=== PATIENT | female | born 1980 | race Caucasian/White ===

== ENCOUNTER 2017-01-07 09:49 | Emergency (ER) | payer MEDICAID, OTHER ==
--- NOTE | 2017-01-07 11:28 | UC ---
FLU HPI - HPI Summary HPI Summary: URI sx for just a little over 24 hours daughter had flu A last week, pt did get flu vaccine in July-general body aches, nasal congestion, denies n/v/d/ denies, urinary sx, denies cough fever---but did have some chills - History of Current Complaint Chief Complaint: UCGeneralIllness Stated Complaint: ACHEY/STUFFY NOSE Time Seen by Provider: 01/07/17 11:18 Hx Obtained From: Patient Hx Last Menstrual Period: 08/29/16 ?: Yes Onset/Duration: Sudden Onset, Lasting Hours - 29 hours Severity Currently: Mild Severity Initially: Mild Pain Intensity: 7 - offered tylenol Pain Scale Used: 0-10 Numeric Associated Signs & Symptoms: Positive: Myalgia, Nasal Congestion Related Hx: Possible Flu/Infectious Exposure - Risk Factors Influenza Risk Factors: or up to 2 Week (Including loss of ) - Allergy/Home Medications Allergies/Adverse Reactions: Allergies Allergy/AdvReac Type Severity Reaction Status Date / Time Azithromycin [From Zithromax] Allergy Intermediate Hives Verified 01/07/17 10:52 Home Medications: Home Medications Acetaminophen TAB* [Tylenol TAB*] 650 mg PO Q4H PRN 01/07/17 [History Confirmed 01/07/17] Folic Acid TAB* [Folvite TAB*] 1 mg PO DAILY 01/07/17 [History Confirmed ] Vitamin TAB* 1 tab PO DAILY 01/07/17 [History Confirmed 01/07/17] Triamcinolone NASAL SPRAY* [Nasacort Aq Nasal [place]*] 1 spray BOTH NARES DAILY 01/07/17 [History Confirmed 01/07/17] PMH/Surg Hx/FS Hx/Imm Hx Previously Healthy: No Endocrine History Of: Denies: Diabetes Cardiovascular History Of: Reports: Cardiac Disorders - "very small heart murmur " Denies: Hypertension, Pacemaker/ICD Respiratory History Of: Reports: Asthma GI/ History Of: Denies: Renal Disease - Surgical History Surgical History: Yes Surgery Procedure, Year, and Place: LAMINECTOMY 2003-SPINAL FUSION 2005 WITH PINS/SCREWS. 2010 - Family History Known Family History: Positive: None - Social History Occupation: Employed Full-time - employed from home Lives: With Family Alcohol Use: None Substance Use Type: None Smoking Status (MU): Never Smoked Tobacco - Immunization History Most Recent Influenza Vaccination: July 2016 Most Recent Pneumonia Vaccination: July 2016 Review of Systems Constitutional: Chills Skin: Negative Eyes: Negative ENT: Sore Throat - yesterday resolved today Respiratory: Negative Cardiovascular: Negative Gastrointestinal: Negative Genitourinary: Negative Motor: Negative Neurovascular: Negative Musculoskeletal: Negative Neurological: Negative Psychological: Negative All Other Systems Reviewed And Are Negative: Yes Physical Exam Triage Information Reviewed: Yes Appearance: Well-Nourished, Ill-Appearing - mild, Pain Distress - mild Vital Signs: Initial Vital Signs Temp 99.2 F 01/07/17 10:48 Pulse 108 01/07/17 10:48 Resp 16 01/07/17 10:48 BP 107/59 01/07/17 10:48 Pulse Ox 99 01/07/17 10:48 Vital Signs Reviewed: Yes Eye Exam: Normal Eyes: Positive: Conjunctiva Clear ENT Exam: Normal ENT: Positive: Normal ENT inspection, Hearing grossly normal, Pharynx normal, TMs normal. Negative: Nasal congestion, Nasal drainage, Tonsillar swelling, Tonsillar exudate, Trismus, Muffled/hoarse voice Dental Exam: Normal Neck exam: Normal Neck: Positive: Supple, Nontender, No Lymphadenopathy Respiratory Exam: Normal Respiratory: Positive: Chest non-tender, Lungs clear, Normal breath sounds, No respiratory distress, No accessory muscle use Cardiovascular Exam: Normal Cardiovascular: Positive: RRR, No Murmur, Pulses Normal, Brisk Capillary Refill Abdominal Exam: Normal Abdomen Description: Positive: Nontender, Soft Bowel Sounds: Positive: Present Musculoskeletal Exam: Normal Musculoskeletal: Positive: Strength Intact, ROM Intact, No Edema Neurological Exam: Normal Neurological: Positive: Alert, Muscle Tone Normal Psychological Exam: Normal Psychological: Positive: Normal Response To Family Skin Exam: Normal Diagnostics - Laboratory Diagnostic Studies Completed/Ordered: influenza A/B (-), FHT 150's Flu Course/Dx - Course Course Of Treatment: tylenol, rest increase fluids, follow with ob in 2 days - Differential Dx/Diagnosis Differential Diagnosis/HQI/PQRI: Influenza, RSV, Upper Respiratory Infection Provider Diagnoses: URI Discharge - Discharge Plan Condition: Stable Disposition: HOME Patient Education Materials: Upper Respiratory Infection (ED), Viral Syndrome ( ED) Referrals: Betty Cabrera MD [Primary Care Provider] - 2 Days
[2017-01-07] MEDS ORDERED: Acetaminophen TAB* 325 MG PO ONE (11:35)
[2017-01-07 11:43] VITALS: BP 101/60
== END 2017-01-07 11:44 | disposition home or self-care (01) ==
LOC: UCCORT 09:49
DX: J06.9 Acute upper respiratory infection, unspecified (principal); Z88.1 Allergy status to other antibiotic agents
CPT/HCPCS: 87502; 99212; A9270-GY; G0463

== ENCOUNTER 2017-09-05 09:46 | Emergency (ER) | payer OTHER ==
[2017-09-05 10:09] VITALS: BP 114/72
--- NOTE | 2017-09-05 10:16 | UC ---
Throat Pain/Nasal Nito HPI - HPI Summary HPI Summary: Pt with 6 days progressive sx - started with sinus pressure, pnd. No with cough , green sputum. mild SOB. Occasional wheeze. No fever, + chills. No rash. No allan, visin changes. Pt has used OTC robitussin, dayquil with little relief. Pt does have asthma. Has an MDI. Pt breast feeding, 3 month old Pt's medications reviewed this visit - History of Current Complaint Chief Complaint: UCRespiratory Stated Complaint: COUGH,CHEST CONGESTION Time Seen by Provider: 09/05/17 10:01 Hx Obtained From: Patient Hx Last Menstrual Period: 08/29/16 ?: No - breast feeding Onset/Duration: Gradual Onset Severity: Moderate Cough: Sputum Appears - green Associated Signs & Symptoms: Positive: Wheezing, Sinus Discomfort, Nasal Discharge - Allergies/Home Medications Allergies/Adverse Reactions: Allergies Allergy/AdvReac Type Severity Reaction Status Date / Time Azithromycin [From Zithromax] Allergy Intermediate Hives Verified 09/05/17 10:05 Home Medications: Home Medications Albuterol HFA INHALER* [Ventolin HFA Inhaler*] 1 - 2 puff INH Q4H PRN 09/05/17 [ History Confirmed 09/05/17] Docusate CAP* [Colace Cap*] 200 mg PO QAM 09/05/17 [History Confirmed 09/05/17] PMH/Surg Hx/FS Hx/Imm Hx Previously Healthy: Yes Respiratory History: Asthma - Surgical History Surgical History: Yes Surgery Procedure, Year, and Place: , 05/23/17, [place]; LAMINECTOMY 2003-SPINAL FUSION 2005 WITH PINS/SCREWS. 2010 - Family History Known Family History: Positive: Respiratory Disease - Social History Lives: With Family Alcohol Use: None Substance Use Type: None Smoking Status (MU): Never Smoked Tobacco - Immunization History Most Recent Influenza Vaccination: Not the 2017/2018 Season Most Recent Pneumonia Vaccination: July 2016 Review of Systems Constitutional: Chills, Fatigue ENT: Sinus Congestion, Sinus Pain/Tenderness Respiratory: Cough Neurological: Negative All Other Systems Reviewed And Are Negative: Yes Physical Exam Triage Information Reviewed: Yes Appearance: Well-Appearing, No Pain Distress, Well-Nourished Vital Signs: Initial Vital Signs Temp 98.6 F 09/05/17 10:01 Pulse 94 09/05/17 10:01 Resp 16 09/05/17 10:01 BP 114/72 09/05/17 10:01 Pulse Ox 99 09/05/17 10:01 Vital Signs Reviewed: Yes Eye Exam: Normal Eyes: Positive: Conjunctiva Clear ENT: Positive: TMs normal, Other: - turbinates inflammed and boggy + PND no exudate, erythema. Negative: Pharyngeal erythema Dental Exam: Normal Neck exam: Normal Neck: Positive: 1 Respiratory: Positive: Chest non-tender, No respiratory distress, No accessory muscle use, Wheezing - scattered wheeze Cardiovascular Exam: Normal Cardiovascular: Positive: RRR, No Murmur Abdominal Exam: Normal Abdomen Description: Positive: Nontender, No Organomegaly Bowel Sounds: Positive: Present Musculoskeletal Exam: Normal Neurological Exam: Normal Psychological Exam: Normal Skin Exam: Normal Throat Pain/Nasal Course/Dx - Course Assessment/Plan: Pt with progressive cough, green sputum. Pt with asthmam breast feeding. VSS. Albuerol MDI Q4. hydrate. Amox. flonase. secretion precaution - Differential Dx/Diagnosis Provider Diagnoses: bronchitis Discharge - Discharge Plan Condition: Stable Disposition: HOME Prescriptions: Amoxicillin PO (*) [Amoxicillin 500 MG CAP*] 500 mg PO Q12H #14 cap Patient Education Materials: Acute Bronchitis (ED) Referrals: Betty Cabrera MD [Primary Care Provider] - Additional Instructions: - Stay well hydrated. Drink plenty of non-alcoholic, non-caffinated beverages - Take antibiotics as prescribed until gone - they may cause diarrhea. - USe inhaler - 2 puffs every 4 hours today and tomorrow and then as needed - continue with nasocort as previous - Okay to use Robitussin for cough - After you have been on antibiotics for 2 days - change your toothbrush and your pillowcase. These infections are spread by secrtions - do NOT share eating or drinking utensils - clean items you share with other people such as iphone, computer mouse, TV remote, etc - Okay to take Tylenol every 6 hours for pain or fever. - Contact your doctor or return with questions or concerns
== END 2017-09-05 10:53 | disposition home or self-care (01) ==
LOC: UCCORT 09:46
DX: J40 Bronchitis, not specified as acute or chronic (principal)
CPT/HCPCS: 99212; G0463

== ENCOUNTER 2018-11-01 09:15 | Emergency (ER) | payer OTHER ==
--- NOTE | 2018-11-01 09:42 | UC ---
Throat Pain/Nasal Nito HPI - HPI Summary HPI Summary: 38-year-old woman comes in with chief complaint of runny nose yellow rhinorrhea sore throat cough chest congestion. Symptoms been going on for almost a week it 's gotten a lot worse over the last couple of days. She is breast-feeding her daughter is sick and on antibiotics right now. No measured fevers today. Because she's breast-feeding she has not really tried any [id number] medications. Albuterol does help when she gets some chest congestion. - History of Current Complaint Stated Complaint: COUGH, CONGESTION Time Seen by Provider: 11/01/18 09:35 Hx Last Menstrual Period: 08/29/16 - Allergies/Home Medications Allergies/Adverse Reactions: Allergies Allergy/AdvReac Type Severity Reaction Status Date / Time azithromycin Allergy Hives Verified 11/01/18 09:37 morphine Allergy Nausea And Verified 11/01/18 09:37 Vomiting senna [From Senokot] Allergy Diarrhea Verified 11/01/18 09:37 Home Medications: Home Medications L.acidoph,Paracasei, B.lactis [Probiotic] 1 each PO DAILY 11/01/18 [History Confirmed 11/01/18] PMH/Surg Hx/FS Hx/Imm Hx Previously Healthy: Yes Respiratory History: Asthma - Surgical History Surgical History: Yes Surgery Procedure, Year, and Place: , 05/23/17, [place]; LAMINECTOMY 2003-SPINAL FUSION 2005 WITH PINS/SCREWS. 2010 - Family History Known Family History: Positive: None, Respiratory Disease - Social History Alcohol Use: None Substance Use Type: None Smoking Status (MU): Never Smoked Tobacco - Immunization History Most Recent Influenza Vaccination: Not the 2016/2017 Season Most Recent Pneumonia Vaccination: July 2016 Review of Systems All Other Systems Reviewed And Are Negative: Yes Constitutional: Positive: Chills Skin: Positive: Negative Eyes: Positive: Negative ENT: Positive: Sore Throat, Nasal Discharge, Sinus Congestion Respiratory: Positive: Cough, Other - WHEEZING Cardiovascular: Positive: Negative Gastrointestinal: Positive: Negative Motor: Positive: Negative Neurovascular: Positive: Negative Musculoskeletal: Positive: Negative Neurological: Positive: Negative Psychological: Positive: Negative Is Patient Immunocompromised?: No Physical Exam Triage Information Reviewed: Yes Appearance: No Pain Distress, Well-Nourished, Ill-Appearing - MILD Vital Signs Reviewed: Yes Eye Exam: Normal Eyes: Positive: Conjunctiva Clear ENT: Positive: Pharyngeal erythema, Nasal congestion, Nasal drainage, TMs normal Neck exam: Normal Neck: Positive: Supple Respiratory Exam: Normal Respiratory: Positive: Lungs clear, Normal breath sounds, No respiratory distress Cardiovascular: Positive: RRR Musculoskeletal Exam: Normal Musculoskeletal: Positive: Strength Intact, ROM Intact Neurological Exam: Normal Neurological: Positive: Alert, Muscle Tone Normal Psychological Exam: Normal Psychological: Positive: Age Appropriate Behavior Skin Exam: Normal Throat Pain/Nasal Course/Dx - Course Course Of Treatment: DISCUSSED VIRAL VERSES BACTERIAL INFECTION AND THE ROLE OF ANTIBIOTICS. THE PATIENT WISHES TO BE ON ANTIBIOTIC AT THIS TIME. - Differential Dx/Diagnosis Provider Diagnosis: Upper respiratory tract infection Discharge - Sign-Out/Discharge Documenting (check all that apply): Patient Departure All imaging exams completed and their final reports reviewed: No Studies - Discharge Plan Condition: Stable Disposition: HOME Prescriptions: Amoxicillin PO (*) [Amoxicillin 875 MG (*)] 875 mg PO BID #20 tab Patient Education Materials: Upper Respiratory Infection (ED) Referrals: Betty Cabrera MD [Primary Care Provider] - Additional Instructions: FOLLOW UP WITH YOUR DOCTOR IF NOT COMPLETELY IMPROVED. GET RECHECKED FOR ANY WORSENING OF YOUR CONDITION OR QUESTIONS OR CONCERNS. - Billing Disposition and Condition Condition: STABLE Disposition: Home
[2018-11-01 09:43] VITALS: BP 128/73
== END 2018-11-01 09:49 | disposition home or self-care (01) ==
LOC: UCCORT 09:15
DX: J06.9 Acute upper respiratory infection, unspecified (principal); Z88.5 Allergy status to narcotic agent; Z88.1 Allergy status to other antibiotic agents; Z88.8 Allergy status to other drugs, medicaments and biological substances
CPT/HCPCS: 99212; G0463

== ENCOUNTER 2018-11-26 09:36 | Emergency (ER) | payer OTHER ==
[2018-11-26 09:58] VITALS: BP 124/74
--- NOTE | 2018-11-26 10:13 | UC ---
Throat Pain/Nasal Nito HPI - HPI Summary HPI Summary: sinus congestion and headache for 2 weeks, now has a cough that is harsh and productive - History of Current Complaint Chief Complaint: UCRespiratory Stated Complaint: COUGH Time Seen by Provider: 11/26/18 10:05 Hx Obtained From: Patient Hx Last Menstrual Period: uterine ablation ?: No Onset/Duration: Sudden Onset, Lasting Weeks Severity: Moderate Pain Intensity: 0 Cough: Productive Associated Signs & Symptoms: Positive: Dysphagia, Wheezing, Sinus Discomfort, Nasal Discharge - Allergies/Home Medications Allergies/Adverse Reactions: Allergies Allergy/AdvReac Type Severity Reaction Status Date / Time azithromycin Allergy Hives Verified 11/26/18 09:54 morphine Allergy Nausea And Verified 11/26/18 09:54 Vomiting senna [From Senokot] Allergy Diarrhea Verified 11/26/18 09:54 Home Medications: Home Medications Ibuprofen TAB* [Advil TAB*] 400 mg PO Q6H PRN 11/26/18 [History Confirmed ] Triamcinolone NASAL SPRAY* [Nasacort AQ Nasal [place]*] 1 puff NASAL DAILY [History Confirmed 11/26/18] PMH/Surg Hx/FS Hx/Imm Hx Previously Healthy: Yes - Surgical History Surgical History: Yes Surgery Procedure, Year, and Place: , 05/23/17, [place]; LAMINECTOMY 2003-SPINAL FUSION 2005 WITH PINS/SCREWS. 2010. D&C. uterine ablation - Family History Known Family History: Positive: None, Respiratory Disease - Social History Alcohol Use: None Substance Use Type: None Smoking Status (MU): Never Smoked Tobacco - Immunization History Most Recent Influenza Vaccination: Not the 2016/2017 Season Most Recent Pneumonia Vaccination: July 2016 Review of Systems All Other Systems Reviewed And Are Negative: Yes Constitutional: Positive: Fatigue Skin: Positive: Negative Eyes: Positive: Negative ENT: Positive: Sore Throat, Ear Ache, Nasal Discharge, Sinus Pain/Tenderness Respiratory: Positive: Cough Cardiovascular: Positive: Negative Gastrointestinal: Positive: Negative Genitourinary: Positive: Negative Motor: Positive: Negative Neurovascular: Positive: Negative Musculoskeletal: Positive: Negative Neurological: Positive: Headache Psychological: Positive: Negative Is Patient Immunocompromised?: No Physical Exam Triage Information Reviewed: Yes Appearance: Well-Nourished, Ill-Appearing, Pain Distress Vital Signs: Initial Vital Signs Temp 97.9 F 11/26/18 09:55 Pulse 84 11/26/18 09:55 Resp 16 11/26/18 09:55 BP 124/74 11/26/18 09:55 Pulse Ox 98 11/26/18 09:55 Vital Signs Reviewed: Yes Eye Exam: Normal ENT: Positive: Pharyngeal erythema, Nasal congestion, TM bulging - bilaterally Dental Exam: Normal Neck exam: Normal Neck: Positive: Supple, Nontender, No Lymphadenopathy Respiratory Exam: Normal Respiratory: Positive: Chest non-tender, Lungs clear, Normal breath sounds Cardiovascular Exam: Normal Cardiovascular: Positive: RRR, No Murmur, Pulses Normal Abdominal Exam: Normal Abdomen Description: Positive: Nontender, No Organomegaly, Soft Musculoskeletal Exam: Normal Neurological Exam: Normal Psychological Exam: Normal Skin Exam: Normal Throat Pain/Nasal Course/Dx - Course Course Of Treatment: hx obtained, exam performed ,meds reviewed, treaed for sinusitis and bronchospasm - Differential Dx/Diagnosis Differential Diagnosis/HQI/PQRI: Influenza, Laryngitis, Otitis Media, Pharyngitis, Sinusitis, URI Provider Diagnosis: Sinusitis, Bronchospasm Discharge - Sign-Out/Discharge Documenting (check all that apply): Patient Departure All imaging exams completed and their final reports reviewed: No Studies - Discharge Plan Condition: Stable Disposition: HOME Prescriptions: Cephalexin CAP* [Keflex CAP*] 500 mg PO BID #14 cap predniSONE [Prednisone 20 MG TAB] 40 mg PO DAILY #10 tablet Patient Education Materials: Bronchospasm (ED), Rhinosinusitis (ED) Referrals: Betty Cabrera MD [Primary Care Provider] - Additional Instructions: 1. take the medication as prescribed. 2. Increase fluid intake and get plenty of rest 3. TYlenol as needed for headache/ pain. - Billing Disposition and Condition Condition: STABLE Disposition: Home
== END 2018-11-26 10:18 | disposition home or self-care (01) ==
LOC: UCCORT 09:36
DX: J32.9 Chronic sinusitis, unspecified (principal); J98.01 Acute bronchospasm; Z88.1 Allergy status to other antibiotic agents; Z88.5 Allergy status to narcotic agent; Z88.8 Allergy status to other drugs, medicaments and biological substances
CPT/HCPCS: 99212; G0463

== ENCOUNTER 2019-02-22 09:07 | Emergency (ER) | payer OTHER ==
[2019-02-22 09:37] VITALS: BP 107/74
--- NOTE | 2019-02-22 10:10 | UC ---
Throat Pain/Nasal Nito HPI - HPI Summary HPI Summary: Pt with 10 days head congestion, progressive sinus pressure, now in lungs x 3 days. + productive yellow sputum. no fevers, + chills. + fatigue. Pt has taken OTC decongestant and her MDI with short time improvement. Pt does have h/o ashthma. never intubated Medications reviewed this visit - History of Current Complaint Chief Complaint: UCGeneralIllness Stated Complaint: COUGH,CHILLS Time Seen by Provider: 02/22/19 09:48 Hx Obtained From: Patient Hx Last Menstrual Period: uterine ablation Pain Intensity: 0 - Allergies/Home Medications Allergies/Adverse Reactions: Allergies Allergy/AdvReac Type Severity Reaction Status Date / Time azithromycin Allergy Hives Verified 02/22/19 09:35 morphine Allergy Nausea And Verified 02/22/19 09:35 Vomiting senna [From Senokot] Allergy Diarrhea Verified 02/22/19 09:35 PMH/Surg Hx/FS Hx/Imm Hx Previously Healthy: Yes - Surgical History Surgical History: Yes Surgery Procedure, Year, and Place: , 05/23/17, [place]; LAMINECTOMY 2003-SPINAL FUSION 2005 WITH PINS/SCREWS. 2010. D&C. uterine ablation - Family History Known Family History: Positive: None, Respiratory Disease, Non-Contributory - Social History Occupation: Employed Full-time Lives: With Family Alcohol Use: None Substance Use Type: None Smoking Status (MU): Never Smoked Tobacco - Immunization History Most Recent Influenza Vaccination: Not the 2017/2017 Season Most Recent Pneumonia Vaccination: July 2016 Review of Systems All Other Systems Reviewed And Are Negative: Yes Constitutional: Positive: Fatigue ENT: Positive: Nasal Discharge, Sinus Congestion, Sinus Pain/Tenderness Respiratory: Positive: Cough, Other - wheeze Physical Exam - Summary Physical Exam Summary: Vital Signs Reviewed: Yes A+Ox3, cough Eyes: Conjunctiva Clear, FABIO. EOM intact and full ENT: Hearing grossly normal TM x 2 clear, turbinates inflammed, boggy, +PND, mmoist, uvula midline, no exudate, no erythema Neck: Positive: Supple Respiratory: Positive: No respiratory distress, No accessory muscle use + course cough, wheeze no retractions Cardiovascular: RRR nl s1, s2 no m/r CBT <2 sec abd soft + BS nt/nd no guarding, no distension Musculoskeletal Exam: ARAMBULA x 4 without difficulty Strength Intact, ROM Intact Neurological: Positive: Alert, + sensation throughout Psychological: Positive: Normal Response To Family Skin: Positive: no rash, no ecchymosis Triage Information Reviewed: Yes Vital Signs: Initial Vital Signs Temp 97.8 F 02/22/19 09:33 Pulse 88 02/22/19 09:33 Resp 17 02/22/19 09:33 BP 107/74 02/22/19 09:33 Pulse Ox 100 02/22/19 09:33 Throat Pain/Nasal Course/Dx - Course Course Of Treatment: Pt with progressive congestion, cough, wheeze x 3 days. Pt with h/o wheeze. VSS pt with scatterd wheeze, cough and congested head Will Rx albtuerol, pred, abx hydrate secretion precaution humidified air - Differential Dx/Diagnosis Provider Diagnosis: Asthma, Acute bronchitis Discharge - Sign-Out/Discharge Documenting (check all that apply): Patient Departure All imaging exams completed and their final reports reviewed: No Studies - Discharge Plan Condition: Stable Disposition: HOME Prescriptions: Albuterol HFA INHALER* [Ventolin HFA Inhaler*] 2 puff INH Q4H PRN #1 mdi PRN Reason: wheeze Amoxicillin PO (*) [Amoxicillin 500 MG CAP*] 500 mg PO Q12H #20 cap Inhaler, Assist Devices [Aerochamber Mv] 1 each PO Q4HR #1 spacer predniSONE TAB* [Deltasone TAB*] 50 mg PO DAILY #5 tab Patient Education Materials: Acute Bronchitis (ED) Referrals: Betty Cabrera MD [Primary Care Provider] - Additional Instructions: - Stay well hydrated. Drink plenty of non-alcoholic, non-caffinated beverages. - Alternate ibuprofen (Advil, Motrin) 600mg and Tylenol every 3 hours for pain or fever. Take with food. Do NOT take for more than 4-5 days. - These infections are spread by secretions - do NOT share eating or drinking utensils - clean items you share with other people such as cell phones, computer mouse, TV remote, computer tablets,etc. Once you have been on antibiotics for 2 days, change your toothbrush and your pillowcase. - get plenty of restful sleep - humidify the air in the room where you sleep - boil water, run a hot steam shower, vaporizer, cups of water by heat register - okay to take over the counter decongestant and cough medication - Take antibiotics and prednisone as prescribed - Use your inhaler - 2 puffs every 4 hours today and tomorrow, then every 4 hours as needed - contact your doctor or return with questions or concerns - Billing Disposition and Condition Condition: STABLE Disposition: Home
== END 2019-02-22 10:42 | disposition home or self-care (01) ==
LOC: UCCORT 09:07
DX: J20.9 Acute bronchitis, unspecified (principal); J45.909 Unspecified asthma, uncomplicated; Z88.1 Allergy status to other antibiotic agents; Z88.5 Allergy status to narcotic agent; Z88.8 Allergy status to other drugs, medicaments and biological substances
CPT/HCPCS: 99212; G0463

== ENCOUNTER 2019-08-17 09:05 | Emergency (ER) | payer OTHER ==
[2019-08-17 09:44] VITALS: BP 121/81
--- NOTE | 2019-08-17 10:09 | UC ---
Throat Pain/Nasal Nito HPI - HPI Summary HPI Summary: 39-year-old female who had postnasal drainage starting 4 days ago which has progressively turned into a productive cough of green sputum. She denies any sinus symptoms. She does have a history of asthma as well as seasonal allergies. She has not been using her nebulizer at home. - History of Current Complaint Chief Complaint: UCRespiratory Stated Complaint: COUGH Time Seen by Provider: 08/17/19 10:00 Hx Obtained From: Patient Hx Last Menstrual Period: 06/2019 ?: No Onset/Duration: Gradual Onset Severity: Mild Pain Intensity: 5 Cough: Sputum Appears Associated Signs & Symptoms: Positive: Nasal Discharge Related History: Seasonal Allergies - Allergies/Home Medications Allergies/Adverse Reactions: Allergies Allergy/AdvReac Type Severity Reaction Status Date / Time azithromycin Allergy Hives Verified 08/17/19 09:29 morphine Allergy Nausea And Verified 08/17/19 09:29 Vomiting senna [From Senokot] Allergy Diarrhea Verified 08/17/19 09:29 Home Medications: Home Medications Decongestant Tab 1 tab PO DAILY PRN 08/17/19 [History Confirmed 08/17/19] Dextromethorphn/Acetaminoph/Cp [Vicks Nyquil Cold & Flu N] 1 liq PO ONCE [History Confirmed 08/17/19] GuaiFENesin DM* [Robitussin DM*] 10 ml PO Q4H PRN 08/17/19 [History Confirmed ] Multivitamin [Multivitamins] 1 each PO DAILY 08/17/19 [History Confirmed ] PMH/Surg Hx/FS Hx/Imm Hx Previously Healthy: Yes Cardiovascular History: Other - History of a slight heart murmur. Respiratory History: Asthma - Surgical History Surgical History: Yes Surgery Procedure, Year, and Place: , 05/23/17, [place]; LAMINECTOMY 2003-SPINAL FUSION 2005 WITH PINS/SCREWS. 2010. D&C. uterine ablation 07/2018 - Family History Known Family History: Positive: None, Respiratory Disease, Non-Contributory - Social History Alcohol Use: None Substance Use Type: None Smoking Status (MU): Never Smoked Tobacco - Immunization History Most Recent Influenza Vaccination: Not the Season Most Recent Pneumonia Vaccination: July 2016 Review of Systems All Other Systems Reviewed And Are Negative: Yes ENT: Positive: Nasal Discharge Respiratory: Positive: Shortness Of Breath - Occasional shortness of breath with coughing, Cough - Productive cough of green sputum Is Patient Immunocompromised?: No Physical Exam Triage Information Reviewed: Yes Appearance: Well-Appearing, No Pain Distress, Well-Nourished Vital Signs: Initial Vital Signs Temp 98.2 F 08/17/19 09:37 Pulse 82 08/17/19 09:37 Resp 17 08/17/19 09:37 BP 121/81 08/17/19 09:37 Pulse Ox 100 08/17/19 09:37 Vital Signs Reviewed: Yes Eyes: Positive: Conjunctiva Clear ENT: Positive: Pharynx normal, TMs normal, Uvula midline Neck: Positive: Supple, Nontender, No Lymphadenopathy Respiratory: Positive: Lungs clear, Normal breath sounds, No respiratory distress, No accessory muscle use Cardiovascular: Positive: RRR, No Murmur, Pulses Normal, Brisk Capillary Refill Abdomen Description: Positive: Nontender, No Organomegaly, Soft. Negative: CVA Tenderness (R), CVA Tenderness (L) Bowel Sounds: Positive: Present Musculoskeletal Exam: Normal Neurological Exam: Normal Psychological Exam: Normal Skin Exam: Normal Throat Pain/Nasal Course/Dx - Course Course Of Treatment: Chest x-ray:FINDINGS: CARDIOMEDIASTINAL SILHOUETTE: The cardiomediastinal silhouette is normal. MCKINLEY: The mckinley are normal. PLEURA: The costophrenic angles are sharp. No pleural abnormalities are noted. LUNG PARENCHYMA: There is hyperinflation with flattening of the diaphragm and expansion of the AP diameter of the chest. ABDOMEN: The upper abdomen is clear. There is no subphrenic gas. BONES AND SOFT TISSUES: No bone or soft tissue abnormalities are noted. OTHER: None. IMPRESSION: HYPERINFLATION WHICH CAN BE SEEN WITH COPD OR REACTIVE AIRWAY DISEASE. NO ACTIVE CARDIOPULMONARY DISEASE. DuoNeb treatment: Patient refuses stating she would feel too shaky driving home. With the chest x-ray findings of reactive airway disease I am going to start her on tapering prednisone which she has had in the past. She can use her albuterol inhaler with spacer at home to puffs every 4-6 hours as needed. She is to follow-up with her primary care provider if no improvement in 3 or 4 days. At this point time I feel this is more viral upper respiratory illness and does not need an antibiotic. - Differential Dx/Diagnosis Provider Diagnosis: Bronchitis Discharge ED - Sign-Out/Discharge Documenting (check all that apply): Patient Departure All imaging exams completed and their final reports reviewed: Yes - Discharge Plan Condition: Good Disposition: HOME Prescriptions: predniSONE TAB* [Deltasone 10 MG TAB*] 10 mg PO DAILY 12 Days #30 tab Patient Education Materials: Acute Bronchitis (ED) Referrals: Jhoana Teran PA [Primary Care Provider] - Additional Instructions: Increase fluids, use your inhaler with spacer 2 puffs every 4-6 hours as needed for wheezing or tight cough. Follow-up with your primary care provider in 3 or 4 days if no improvement. Take the prednisone with food. - Billing Disposition and Condition Condition: GOOD Disposition: Home
== END 2019-08-17 11:10 | disposition home or self-care (01) ==
LOC: UCCORT 09:05
DX: J40 Bronchitis, not specified as acute or chronic (principal); J45.909 Unspecified asthma, uncomplicated
CPT/HCPCS: 71046; 99212; G0463

== ENCOUNTER 2019-09-24 07:28 | Emergency (ER) | payer OTHER ==
--- OUTSIDE RECORDS SUMMARY | 2019-09-24 07:40 | XMS REPORT | Continuity of Care Document ---
:1980 External Reference #:[id number] Author Name Jhoana Teran PA Address [id number] [place] [address] Care Team Providers Name Role Phone Yue Simmons MD - Neurology Care Team Information Hydraulic Press Operator Sheree Short MD - Care Team Information Hydraulic Press Operator Dermatology Nakia Avery [facility] Care Team Information Hydraulic Press Operator [phone] Jhoana Teran PA - Medical Care Team Information Hydraulic Press Operator [phone] Problems Active Problems Provider Date Acne Suzie Maya [facility] Onset: 09/28/2017 Headache Jhoana Teran PA Onset: 08/06/2019 Acute upper respiratory infection, Betty Cabrera MD Onset: 04/07/2018 unspecified Acute pharyngitis Alicia Workman M.D. Onset: 12/19/2017 Diarrhea Alicia Workman M.D. Onset: 10/28/2017 Allergic rhinitis Alicia Workman M.D. Onset: 10/28/2017 Acute sinusitis Alicia Workman M.D. Onset: 10/28/2017 Social History Type Date Description Comments Sex Unknown Tobacco Use Start: Unknown Never Smoked Cigarettes Smoking Status Reviewed: 08/06/19 Never Smoked Cigarettes ETOH Use Denies alcohol use Tobacco Use Start: Unknown Patient has never smoked Allergies, Adverse Reactions, Alerts Active Allergies Reaction Severity Comments Date Sennosides, Snf cannot tolerate 08/09/2017 Morphine Nausea and Vomiting 08/09/2017 Azithromycin hives 08/09/2017 Medications Active Medications SIG Qnty Indications Ordering Date Provider Magnesium 1 by mouth every 90tabs R51 Sandy Walker, 08/06/2019 400mg day for the MD Tablets prevention of headache Vitamin B-2 1 by mouth every 90tabs R51 Sandy Walker, 08/06/2019 100mg day for prevention MD Tablets of headache Naproxen 1 tab by mouth 60tabs M65.4 Sandy Walker, 08/06/2019 250mg twice a day with MD Tablets food Ventolin HFA 1-2 puffs every 4-6 8gm Rick, Betty, 04/07/2018 hours as needed for MD 108(90Base) mcg/Act cough and shortness Aerosol of breath Nasacort Allergy 2 sprays each nare Unknown 24HR every day 55mcg/Act Aerosol Zyrtec Allergy 1 tab by mouth Unknown 10mg every night Tablets Clindamycin apply face daily Unknown Phosphate 1% Solution Probiotic 1 by mouth every Unknown Capsules day Womens Multi Unknown Capsules Immunizations CPT Code Status Date Vaccine Reaction Lot # [id number] Given 08/06/2019 Influenza Virus Vaccine, Quadrivalent, 36 [id number] Mos+, .5ML [id number] Given 09/11/2018 Influenza Virus Vaccine, Quadrivalent, 36 none [id number] Mos+, .5ML 86377 Given 10/10/2017 Influenza Virus Vaccine Quadrivalent Iiv4 [id number] [address] Given 05/05/2017 Tdap injection [id number] 13482 Given 08/30/2016 Pneumovax Injection [id number] 13328 Given 08/30/2016 Influenza Virus Vaccine Split Virus Use [id number] For Individual 3Yr Older [id number] Given 01/07/2016 Influenza Vaccine (Fluzone) Age 3 And [id number] Older Vital Signs Date Vital Result Comment 08/06/2019 9:41am BP Systolic 116 mmHg BP Diastolic 68 mmHg Body Temperature 98.3 F Heart Rate 86 /min Respiratory Rate 18 /min Height 60 inches 5'0" Weight 141.38 lb BMI (Body Mass Index) 27.6 kg/m2 BSA (Body Surface Area) 1.61 m2 [place] body weight in kilograms 45 kg O2 % BldC Oximetry 99 % 04/07/2018 11:14am BP Systolic Sitting Right Arm 106 mmHg BP Diastolic Sitting Right Arm 79 mmHg Body Temperature 98.2 F Heart Rate 91 /min Respiratory Rate 12 /min Height 60 inches 5'0" Weight 123.00 lb BMI (Body Mass Index) 24.0 kg/m2 BSA (Body Surface Area) 1.52 m2 [place] body weight in kilograms 45 kg O2 % BldC Oximetry 98 % Results Test Date Facility Test Result H/L Range Note Specific gravity of Import Specific gravity <=1.005 Low 1.010-1.03 Urine by Automated 2019 of Urine by 0 test strip Automated test strip Urine hemoglobin Import Urine hemoglobin Negative 0-2 detection by 2019 detection by automated test automated test strip strip Urine pH Import Urine pH 6.5 6.5-7.5 measurement by 2018 measurement by automated test automated test strip strip Urine protein CCD Import Urine protein Negative Negative measurement by 2019 measurement by automated test automated test strip strip (mass/volume) Urine urobilinogen Import Urine urobilinogen 0.2 0.2-1.0 measurement 2019 measurement (units/volume) by t (units/volume) by test strip Urine nitrite Import Urine nitrite Negative Negative detection by 2019 detection by automated test automated test strip strip Urine leukocyte CCD Import Urine leukocyte Negative Negative esterase detection 2019 esterase detection by automated te by automated test strip Urine human Import Urine human Negative Negative chorionic 2019 chorionic gonadotropin (hCG) gonadotropin (hCG) detection detection Serum or plasma CCD Import Serum or plasma 115 High 74-106 glucose measurement 2018 glucose (mass/volume) measurement (mass/volume) Serum or plasma /CCD Import Serum or plasma 11 7-18 urea nitrogen 2019 urea nitrogen measurement measurement (mass/vo (mass/volume) Serum or plasma CCD Import Serum or plasma 0.8 0.6-1.3 creatinine 2018 creatinine measurement measurement (mass/volum (mass/volume) Estimated /CCD Import Estimated >60 >60 glomerular 2019 glomerular filtration rate filtration rate (GFR) non-Afr (GFR) non- GFR/Bsa pred.black 07/19/ N2N/CCD Import GFR/Bsa pred.black >60 >60 SerPl MDRD-ArVRat 2019 SerPl MDRD-ArVRat Serum or plasma 07/19/ N2N/CCD Import Serum or plasma 13.7 urea 2019 urea nitrogen/creatinine nitrogen/creatinin mass rati e mass ratio Sodium SerPl-sCnc 07/19/ N2N/CCD Import Sodium SerPl-sCnc 139 559-251 9095 Serum or plasma 07/19/ N2N/CCD Import Serum or plasma 3.8 3.5-5.1 potassium 2019 potassium measurement measurement Serum or plasma 07/19/ N2N/CCD Import Serum or plasma 106 98-107 chloride 2019 chloride measurement measurement Co2 SerPl-sCnc 07/19/ N2N/CCD Import Co2 SerPl-sCnc 28 21-32 2019 Serum or plasma 07/19/ N2N/CCD Import Serum or plasma 5 Low 8-16 anion gap 2019 anion gap Serum or plasma 07/19/ N2N/CCD Import Serum or plasma 8.7 8.5-10.1 calcium measurement 2019 calcium (mass/volume) measurement (mass/volume) Serum or plasma 07/19/ N2N/CCD Import Serum or plasma 7.4 6.4-8.2 protein measurement 2019 protein (mass/volume) measurement (mass/volume) Serum or plasma 07/19/ N2N/CCD Import Serum or plasma 3.5 3.4-5.0 albumin measurement 2019 albumin (mass/volume) measurement (mass/volume) Serum globulin 07/19/ N2N/CCD Import Serum globulin 3.9 1.9-4.3 measurement by 2019 measurement by calculation calculation (mass/vo (mass/volume) Serum or plasma 07/19/ N2N/CCD Import Serum or plasma 0.9 albumin/globulin 2019 albumin/globulin mass ratio mass ratio Serum or plasma 07/19/ N2N/CCD Import Serum or plasma 0.4 0.2-1.0 total bilirubin 2019 total bilirubin measurement (mass/ measurement (mass/volume) Serum or plasma 07/19/ N2N/CCD Import Serum or plasma 11 Low 15-37 aspartate 2019 aspartate aminotransferase aminotransferase measure measurement (enzymatic activity/volume) Serum or plasma 07/19/ N2N/CCD Import Serum or plasma 19 12-78 alanine 2019 alanine aminotransferase aminotransferase measureme measurement (enzymatic activity/volume) Serum or plasma N2N/CCD Import Serum or plasma 53 45-117 alkaline 2019 alkaline phosphatase phosphatase measurement ( measurement (enzymatic activity/volume) Serum or plasma N2N/CCD Import Serum or plasma 191 56-289 lipase measurement 2018 lipase measurement (enzymatic acti (enzymatic activity/volume) CBC W/Automated CRM White Blood Count 6.1 K/uL Normal 3.1-10.7 1 Diff 2018 [address] [place] [address] [phone] Red Blood Count 3.61 M/uL Low 3.90-5.40 Hemoglobin 12.6 gm/dL Normal 11.6-15.8 Hematocrit 36.9 % Normal 36.0-46.1 Mean Cell Volume 102.2 fl High 80.9-99.0 Mean Corpuscular HGB 34.9 pg High 25.9-32.7 Mean Corpuscular HGB Conc 34.1 g/dL Normal 30.8-34.3 Platelet Count 314 K/uL Normal 155-360 Red Cell Distri Width SD 43.0 fl Normal 36-47 Red Cell Distri Width %CV 11.4 % Low 11.7-14.4 Mean Platelet Volume 9.8 fl Normal 8.9-12.4 Neut% 76.3 % High 40.4-72.8 Lymph % 16.3 % Low 20.0-42.0 [place]vin % 5.6 % Normal 4.3-13.2 Eo% 0.8 % Normal 0.0-6.6 Bas% 0.5 % Normal 0.0-1.1 Immature Grans 0.5 % Normal 0.0-5.0 NRBC % 0.0 /100WBC < 10/ 100 WBC Neut# 4.65 K/uL Normal 1.8-7.0 Lymph # 0.99 K/uL Low 1.0-4.0 [place]vin # 0.34 K/uL Normal 0.3-0.9 Eos # 0.05 K/uL Normal 0.0-0.5 Baso # 0.03 K/uL Normal 0.0-0.1 Immature Grans Absolute 0.03 K/uL NRBC # 0.00 K/uL Automated 07/19/2019 N2N/CCD Import Automated 6.1 3.1-10.7 leukocyte count leukocyte count (number/volume) (number/volume) Blood erythrocytes 07/19/2019 N2N/CCD Import Blood erythrocytes 3.61 Low 3.90-5.40 automated count automated count (number/volume) (number/volume) Blood hemoglobin 07/19/2019 N2N/CCD Import Blood hemoglobin 12.6 11.6- 15.8 measurement measurement (mass/volume) (mass/volume) Hct VFr Bld Auto 07/19/2019 N2N/CCD Import Hct VFr Bld Auto 36.9 36.0- 46.1 Automated 07/19/2019 N2N/CCD Import Automated 102.2 High 80.9-99.0 erythrocyte mean erythrocyte mean corpuscular volume corpuscular volume (MCV (MCV) measurement Automated 07/19/2019 N2N/CCD Import Automated 34.9 High 25.9-32.7 erythrocyte mean erythrocyte mean corpuscular corpuscular hemoglobin hemoglobin (mass per erythrocyte) Automated 07/19/2019 N2N/CCD Import Automated 34.1 30.8-34.3 erythrocyte mean erythrocyte mean corpuscular corpuscular hemoglobin hemoglobin concentration measurement (mass/volume) Automated blood 07/19/2019 N2N/CCD Import Automated blood 314 155-360 platelet count platelet count (count/volume) (count/volume) Automated 07/19/2019 N2N/CCD Import Automated 43.0 36-47 erythrocyte erythrocyte distribution width distribution width Automated 07/19/2019 N2N/CCD Import Automated 11.4 Low 11.7-14.4 erythrocyte erythrocyte distribution width distribution width ratio ratio Automated blood 07/19/2019 N2N/CCD Import Automated blood 9.8 8.9-12.4 platelet mean platelet mean volume measurement volume measurement Automated blood 07/19/2019 N2N/CCD Import Automated blood 76.3 High 40.4- 72.8 neutrophils/100 neutrophils/100 leukocytes leukocytes Automated blood 07/19/2019 N2N/CCD Import Automated blood 16.3 Low 20.0- 42.0 lymphocytes/100 lymphocytes/100 leukocytes leukocytes Automated monocyte 07/19/2019 N2N/CCD Import Automated monocyte 5.6 4.3- 13.2 % % Automated 07/19/2019 N2N/CCD Import Automated 0.8 0.0-6.6 eosinophil % eosinophil % Automated basophil 07/19/2019 N2N/CCD Import Automated basophil 0.5 0.0- 1.1 % % Automated blood 07/19/2019 N2N/CCD Import Automated blood 0.5 0.0-5.0 immature immature granulocyte count granulocyte count as perc as percentage of total leukocytes Automated blood 07/19/2019 N2N/CCD Import Automated blood 0.0 < 10/ 100 nucleated nucleated WBC erythrocyte count erythrocyte count as per as percentage of total leukocytes Absolute 07/19/2019 N2N/CCD Import Absolute 4.65 1.8-7.0 neutrophil count neutrophil count Automated blood 07/19/2019 N2N/CCD Import Automated blood 0.99 Low 1.0- 4.0 lymphocyte count lymphocyte count (number/volume) (number/volume) Blood monocytes 07/19/2019 N2N/CCD Import Blood monocytes 0.34 0.3-0.9 automated count automated count (number/volume) (number/volume) Automated blood 07/19/2019 N2N/CCD Import Automated blood 0.05 0.0-0.5 eosinophil count eosinophil count Automated blood 07/19/2019 N2N/CCD Import Automated blood 0.03 0.0-0.1 basophil count basophil count (number/volume) (number/volume) Automated blood 07/19/2019 N2N/CCD Import Automated blood 0.03 immature immature granulocyte count granulocyte count (number (number/volume) Automated blood 07/19/2019 N2N/CCD Import Automated blood 0.00 nucleated nucleated erythrocyte count erythrocyte count (count (count/volume) Urine color 07/19/2019 N2N/CCD Import Urine color Yellow Yellow determination determination Urine appearance 07/19/2019 N2N/CCD Import Urine appearance Clear Clear determination determination Urine glucose 07/19/2019 N2N/CCD Import Urine glucose Negative Negative measurement by measurement by automated test automated test strip strip (mass/volume) Urine total 07/19/2019 N2N/CCD Import Urine total Negative Negative bilirubin bilirubin detection by detection by automated test automated test strip Urine ketones 07/19/2019 N2N/CCD Import Urine ketones Negative Negative measurement by measurement by automated test automated test strip strip (mass/volume) 1 LEFT SIDE PAIN,POSS HERNIA Procedures Date Code Description Status 11/14/2012 26648349 Colonoscopy Completed Medical Devices Description No Information Available Encounters Description No Information Available Assessments Date Code Description Provider 08/06/2019 M65.4 Radial styloid tenosynovitis [de Quervain] Jhoana Teran PA 08/06/2019 R51 Headache Jhoana Teran PA 08/06/2019 K42.9 Umbilical hernia without obstruction or gangrene Jhoana Teran PA 08/06/2019 N93.8 Other specified abnormal uterine and vaginal Jhoana Teran PA bleeding 08/06/2019 Z23 Encounter for immunization Jhoana Teran PA Plan of Treatment Future Appointment(s):11/12/2019 10:00 am - Jhoana Teran PA at [facility] RD08/06/2019 - Jhoana Teran, PAM65.4 Radial styloid tenosynovitis [de Quervain]New Medication:Naproxen 250 mg - 1 tab by mouth twice a day with foodComments:Physical Therapy declined today. Patient will call if she reconsiders. In the mean time. Will use Naproxen twice daily for up to 2 weeks, then prn. Moist heat for 10 minutes, gentle massage and stretching as instructed. Begin some light strengthening as demonstrated with a dowel, as tolerated. Please call if this is not improving.R51 HeadacheNew Medication: Magnesium 400 mg - 1 by mouth every day for the prevention of headacheVitamin B- 2 100 mg - 1 by mouth every day for prevention of headacheComments:Headache can be triggered by a variety of factors. These include, fatigue, stress, dehydration and caffeine or caffeine withdrawal. Try to stay well hydrated, well rested and reduce your stress. Try not to use OTC analgesics too frequently. This can lead to rebound headache.Follow up:PE 3 [id number] Umbilical hernia without obstruction or gangreneComments:I will check with local surgeon about surgical [id number] Other specified abnormal uterine and vaginal bleedingComments:Follow up with Dr. Carrington as planned.Z23 Encounter for immunization Functional Status Functional Condition Comment Date Status Independent with all ADL's Active Mental Status Description No Information Available Referrals Description No Information Available
[2019-09-24 07:47] VITALS: BP 118/72
--- NOTE | 2019-09-24 08:20 | UC ---
Throat Pain/Nasal Nito HPI - HPI Summary HPI Summary: 39-year-old female with history of asthma presents with 3 day history of general malaise, body aches, nasal congestion, sinus pressure, postnasal drip, sore throat, and occasional productive cough for yellowish sputum. Reports chills but no measured fever. Both and daughter with similar symptoms. She is s/p hysterectomy on 09/07/2019. Denies ear pain, dysphagia, chest pain , palpitations, shortness of breath, wheezing, abdominal pain, nausea, or vomiting. - History of Current Complaint Chief Complaint: UCGeneralIllness Stated Complaint: SINUS Time Seen by Provider: 09/24/19 08:16 Hx Obtained From: Patient Hx Last Menstrual Period: 06/2019 Pain Intensity: 0 - Allergies/Home Medications Allergies/Adverse Reactions: Allergies Allergy/AdvReac Type Severity Reaction Status Date / Time azithromycin Allergy Hives Verified 09/24/19 07:47 morphine Allergy Nausea And Verified 09/24/19 07:47 Vomiting senna [From Senokot] Allergy Diarrhea Verified 09/24/19 07:47 Home Medications: Home Medications Docusate CAP* [Colace Cap*] 100 mg PO DAILY 09/24/19 [History Confirmed 09/24/19 ] PMH/Surg Hx/FS Hx/Imm Hx Respiratory History: Asthma - Surgical History Surgical History: Yes Surgery Procedure, Year, and Place: , 05/23/17, [place]; LAMINECTOMY 2003-SPINAL FUSION 2005 WITH PINS/SCREWS. 2010. D&C. uterine ablation 07/2018. hysterectomy - Family History Known Family History: Positive: Respiratory Disease - Social History Occupation: Works From/At Home Lives: With Family Alcohol Use: None Substance Use Type: None Smoking Status (MU): Never Smoked Tobacco - Immunization History Most Recent Influenza Vaccination: Not the 2017/2017 Season Most Recent Pneumonia Vaccination: July 2016 Review of Systems All Other Systems Reviewed And Are Negative: Yes Constitutional: Positive: Chills. Negative: Fever Skin: Negative: Rash Eyes: Negative: Drainage, Eye Redness ENT: Positive: Sore Throat, Nasal Discharge, Sinus Congestion, Sinus Pain/ Tenderness. Negative: Ear Ache Respiratory: Positive: Cough. Negative: Shortness Of Breath, Other - Wheezing Cardiovascular: Negative: Palpitations, Chest Pain Gastrointestinal: Negative: Abdominal Pain, Vomiting, Diarrhea, Nausea Genitourinary: Positive: Negative Musculoskeletal: Positive: Negative Neurological: Positive: Negative Is Patient Immunocompromised?: No Physical Exam - Summary Physical Exam Summary: GENERAL APPEARANCE: Well developed, well nourished, alert and cooperative, and appears to be in no acute distress. EYES: Conjunctiva clear. No drainage. EARS: External auditory canals and tympanic membranes clear, hearing grossly intact. NOSE: Mild to moderate nasal congestion No nasal discharge. THROAT: Pharyngeal erythema with postnasal drip. No tonsilar inflammation, swelling, exudate, or lesions. Uvula midline. NECK: Neck supple, non-tender without lymphadenopathy. CARDIAC: Normal S1 and S2. No S3, S4 or murmurs. Rhythm is regular. There is no peripheral edema, cyanosis or pallor. Extremities are warm and well perfused. Capillary refill is less than 2 seconds. Peripheral pulses intact. LUNGS: Clear to auscultation without rales, rhonchi, wheezing or diminished breath sounds. ABDOMEN: Positive bowel sounds. Soft, nondistended, nontender. No guarding or rebound. No masses or hepatosplenomegally. MUSKULOSKELETAL: ROM intact to all extremities. No joint erythema or tenderness. Normal muscular development. Normal gait. SKIN: Skin normal color, texture and turgor with no lesions or eruptions. Triage Information Reviewed: Yes Vital Signs: Initial Vital Signs Temp 98 F 09/24/19 07:45 Pulse 102 09/24/19 07:45 Resp 16 09/24/19 07:45 BP 118/72 09/24/19 07:45 Pulse Ox 100 09/24/19 07:45 Vital Signs Reviewed: Yes Throat Pain/Nasal Course/Dx - Course Course Of Treatment: 39-year-old female with history of asthma presents with 3 day history of general malaise, body aches, nasal congestion, sinus pressure, postnasal drip, sore throat, and occasional productive cough for yellowish sputum. Reports chills but no measured fever. Both and daughter with similar symptoms. She is s/p hysterectomy on 09/07/2019. Denies ear pain, dysphagia, chest pain , palpitations, shortness of breath, wheezing, abdominal pain, nausea, or vomiting. Afebrile. Mildly tachycardic otherwise vital signs stable. Patient and mother moderate nasal congestion, normal TMs, mild pharyngeal erythema with postnasal drip, no tonsillar swelling or exudate, no cervical lymphadenopathy, clear bilateral breath sounds, and otherwise unremarkable exam. I have recommended symptomatic treatment for a viral upper sitar infection however patient requests treatment with antibiotics at this time. I discussed at length with the patient at antibiotics have limited effectiveness in treatment of viral illnesses and that the risks of side effects will likely outweigh any benefit she receives from use. Patient verbalizes understanding and continues to request treatment. Will place her on amoxicillin 500 mg twice a day 10 days in addition to symptomatic treatment. She is to follow-up with her primary care provider in 3-5 days if symptoms are not improving. Anticipatory guidance and warning symptoms reviewed with the patient. Verbalizes understanding and agrees with plan of care. - Differential Dx/Diagnosis Differential Diagnosis/HQI/PQRI: Influenza, Sinusitis, URI Provider Diagnosis: URI (upper respiratory infection) Discharge ED - Sign-Out/Discharge Documenting (check all that apply): Patient Departure All imaging exams completed and their final reports reviewed: No Studies - Discharge Plan Condition: Stable Disposition: HOME Prescriptions: Amoxicillin 500 mg PO BID #20 cap Patient Education Materials: Upper Respiratory Infection (ED) Referrals: Jhoana Teran PA [Primary Care Provider] - Additional Instructions: Your history and exam are consistent with a viral upper respiratory infection. Viral infections do not respond to antibiotics and are limited to the treatment of symptoms. Viral infections typically run their course in 7-10 days. I have prescribed you an antibiotic at your request after discussing that it will likely have limited benefit and may cause undesired side effects. If you start, it is important that you complete the entire course. Take amoxicillin 500 mg 1 capsule twice daily for 10 days. Take with food to avoid upset stomach. Drink plenty of fluids to avoid dehydration especially if you are running any fever. Use a saline rinse kit such as Neti Pot or NeilMed at least twice a day to help thin secretions and promote drainage of the sinuses. Continue to use your Nasacort nasal spray 2 sprays each nostril once daily. Use your albuterol inhaler as needed for shortness of breath or wheezing. Take over the counter acetaminophen (Tylenol) or ibuprofen (Advil, Motrin) according to directions as needed for pain or fever. Use salt water gargles several times a day if you have a sore throat. You may also use Chloraseptic spray or Cepacol lonzenges according to directions which contain a numbing medication and can provide some temporary relief from your sore throat. Follow up with your primary care provider in 3-5 days if symptoms persist. Seek immediate medical attention in the emergency room if you have fever greater than 100.5 F despite taking acetaminophen or ibuprofen, have chest pain , difficulty breathing, are unable to swallow, or have any worsening of symptoms. - Billing Disposition and Condition Condition: STABLE Disposition: Home
== END 2019-09-24 08:44 | disposition home or self-care (01) ==
LOC: UCCORT 07:28
DX: J06.9 Acute upper respiratory infection, unspecified (principal); Z88.1 Allergy status to other antibiotic agents; Z88.5 Allergy status to narcotic agent
CPT/HCPCS: 99212; G0463

== ENCOUNTER 2019-10-06 08:33 | Emergency (ER) | payer OTHER ==
[2019-10-06 09:12] VITALS: BP 111/70
--- NOTE | 2019-10-06 09:15 | UC ---
Throat Pain/Nasal Nito HPI - HPI Summary HPI Summary: 39-year-old female who was treated for "possible bronchitis" a week ago with amoxicillin. She states that she had symptoms of head congestion, sinus pressure over the past 2 weeks. She states that she got better however in the past 2 days she has developed sinus congestion and pressure coughing up greenish sputum which she thinks might be postnasal drainage and she is coughing a lot unable to sleep well at night. - History of Current Complaint Chief Complaint: UCRespiratory Stated Complaint: CONGESTION COUGH SORE THROAT Time Seen by Provider: 10/06/19 09:14 Hx Obtained From: Patient Hx Last Menstrual Period: 06/2019 ?: No Onset/Duration: Gradual Onset Severity: Mild Pain Intensity: 3 Cough: Productive - productive cough of greenish sputum. Associated Signs & Symptoms: Positive: Sinus Discomfort, Nasal Discharge - Allergies/Home Medications Allergies/Adverse Reactions: Allergies Allergy/AdvReac Type Severity Reaction Status Date / Time azithromycin Allergy Hives Verified 10/06/19 09:00 morphine Allergy Nausea And Verified 10/06/19 09:00 Vomiting senna [From Senokot] Allergy Diarrhea Verified 10/06/19 09:00 PMH/Surg Hx/FS Hx/Imm Hx Previously Healthy: Yes Cardiovascular History: Other - Heart murmur Respiratory History: Asthma - Surgical History Surgical History: Yes Surgery Procedure, Year, and Place: , 05/23/17, [place]; LAMINECTOMY 2003-SPINAL FUSION 2005 WITH PINS/SCREWS. 2010. D&C. uterine ablation 07/2018. hysterectomy 09/07/19. hysterectomy - Family History Known Family History: Positive: Respiratory Disease - Social History Occupation: Employed Full-time Alcohol Use: None Substance Use Type: None Smoking Status (MU): Never Smoked Tobacco - Immunization History Most Recent Influenza Vaccination: Not the 2016/2017 Season Most Recent Pneumonia Vaccination: July 2016 Review of Systems All Other Systems Reviewed And Are Negative: Yes ENT: Positive: Sore Throat, Nasal Discharge, Sinus Congestion Respiratory: Positive: Cough - Productive cough of greenish sputum. Is Patient Immunocompromised?: No Physical Exam Triage Information Reviewed: Yes Appearance: Well-Appearing, No Pain Distress, Well-Nourished Vital Signs: Initial Vital Signs Temp 98.0 F 10/06/19 09:06 Pulse 84 10/06/19 09:06 Resp 18 10/06/19 09:06 BP 111/70 10/06/19 09:06 Pulse Ox 98 10/06/19 09:06 Vital Signs Reviewed: Yes Eyes: Positive: Conjunctiva Clear ENT: Positive: Pharynx normal - Greenish yellow purulent postnasal drainage., Nasal congestion, Nasal drainage, TMs normal, Uvula midline. Negative: Trismus , Muffled voice, Hoarse voice, Sinus tenderness Neck: Positive: Supple, Nontender, No Lymphadenopathy Respiratory: Positive: Lungs clear, Normal breath sounds, No respiratory distress, No accessory muscle use Cardiovascular: Positive: RRR, No Murmur, Pulses Normal, Brisk Capillary Refill Musculoskeletal Exam: Normal Neurological Exam: Normal Psychological Exam: Normal Skin Exam: Normal Throat Pain/Nasal Course/Dx - Course Course Of Treatment: At this point in time I'm going to treat the patient for a sinusitis. I did advise her that the postnasal drainage will more than likely last longer than the antibiotic course. I'm giving her benzonatate capsules for her cough and she is to sleep in more of an upright position to help drainage and follow-up with her primary care provider in 4-5 days if no improvement. - Differential Dx/Diagnosis Provider Diagnosis: Sinusitis Discharge ED - Sign-Out/Discharge Documenting (check all that apply): Patient Departure All imaging exams completed and their final reports reviewed: No Studies - Discharge Plan Condition: Good Disposition: HOME Prescriptions: Benzonatate CAP* [Tessalon 100 MG CAP*] 100 mg PO TID PRN #21 cap PRN Reason: Cough DOXYcycline CAP(*) [DOXYcycline 100MG CAP(*)] 100 mg PO BID 10 Days #20 cap Patient Education Materials: Sinusitis (ED) Referrals: Jhoana Teran PA [Primary Care Provider] - Additional Instructions: No dairy products, antacids or multivitamins 2 hours before you take the doxycycline and 2 hours after you take it however take it with food. Follow-up with your primary care provider in 4-5 days if no improvement. Increase fluids. - Billing Disposition and Condition Condition: GOOD Disposition: Home
== END 2019-10-06 09:30 | disposition home or self-care (01) ==
LOC: UCCORT 08:33
DX: J32.9 Chronic sinusitis, unspecified (principal); J45.909 Unspecified asthma, uncomplicated; R05 Cough; J02.9 Acute pharyngitis, unspecified; Z88.1 Allergy status to other antibiotic agents; Z88.5 Allergy status to narcotic agent; Z88.8 Allergy status to other drugs, medicaments and biological substances
CPT/HCPCS: 99212; G0463